=== PATIENT | male | born 2000 | race Caucasian/White ===

== ENCOUNTER 2023-08-07 23:53 | Emergency (ER) | payer MEDICAID ==
[~2023-08-07] VITALS: Ht 167.6 cm; Wt 81.6 kg
[2023-08-07 23:58] VITALS: BP 111/47; PULSE 112; RESP 19; TEMP 99.5; O2SAT 98
[2023-08-08] MEDS: NACL 0.9% 1,000 ML IV ONE ×2 (00:18→01:50)
[2023-08-08] MEDS: ONDANSETRON 4 MG/2 ML VIAL IVP ONE (00:31)
[2023-08-08 00:49] LABS: ANION GAP 17.8 (8-16); CALCIUM 8.3 mg/dL (8.5-10.1); CARBON DIOXIDE 22.4 mmol/L (21-32); CREATININE 1.1 mg/dL (0.6-1.3); POTASSIUM 3.2 mmol/L (3.5-5.1)
[2023-08-08 01:30] LABS: AMPHETAMINE, URINE NEGATIVE ng/ml (NEG <=1000); BARBITURATE, URINE NEGATIVE ng/ml (NEG <=200); BENZODIAZEPINE, URINE NEGATIVE ng/mL (NEG <=200); CANNABINOID, URINE POSITIVE ng/mL (NEG <=50); COCAINE, URINE NEGATIVE ng/mL (NEG <=300); OPIATE, URINE NEGATIVE ng/mL (NEG <=2000); PHENCYCLIDINE SCREEN,URINE NEGATIVE ng/mL (NEG <=25)
[2023-08-08] MEDS ORDERED: POTASSIUM CHLORIDE 10 MEQ TABER PO ONE (03:51)
[2023-08-08] MEDS: POTASSIUM CHLORIDE 10 MEQ TABER PO ONE (03:57)
[2023-08-08 04:13] VITALS: BP 117/68; PULSE 88; RESP 16; TEMP 98.6; O2SAT 96
== END 2023-08-08 03:56 | disposition home or self-care (01) ==
LOC: MED 23:53 → EDBD 23:53 → EDSEX 23:53 → MED 08-08 03:56
DX: F10.129 Alcohol abuse with intoxication, unspecified (principal); E87.6 Hypokalemia; Z79.899 Other long term (current) drug therapy; Y90.9 Presence of alcohol in blood, level not specified
CPT/HCPCS: 36415; 70450; 80048; 80305; 96361; 96374; 99285; G0482; J2405; J7030